=== PATIENT | male | born 1970 | race Hispanic/Latino ===

== ENCOUNTER 2017-04-06 04:35 | Emergency (ER) | payer SELFPAY ==
[2017-04-06 04:42] VITALS: BP 148/86
== END 2017-04-06 06:03 | disposition left against medical advice (07) ==
LOC: ED 04:35
DX: H92.09 Otalgia, unspecified ear (principal); Z53.21 Procedure and treatment not carried out due to patient leaving prior to being seen by health care provider

== ENCOUNTER 2021-10-13 00:17 | Emergency (ER) | payer SELFPAY | END 2021-10-13 03:29 | disposition left against medical advice (07) | LOC: ED 00:17 | DX: H57.89 Other specified disorders of eye and adnexa (principal); Z53.21 Procedure and treatment not carried out due to patient leaving prior to being seen by health care provider ==